=== PATIENT | female | born 1960 | race Caucasian/White ===

== ENCOUNTER 2020-09-03 12:53 | Outpatient (REF) | payer BC, SELFPAY | END 2020-09-03 12:54 | disposition home or self-care (01) | LOC: HO.LAB 12:53 | PROVIDERS: Visit Provider Internal Medicine | DX: Z12.4 Encounter for screening for malignant neoplasm of cervix (principal) | CPT/HCPCS: 88142 ==

== ENCOUNTER 2020-09-10 10:32 | Outpatient (REF) | payer BC, SELFPAY ==
[2020-09-10 14:30] LABS: Vitamin D 25-OH Total 33.2 ng/mL (>30)
[2020-09-10 14:38] LABS: Alanine Aminotransferase 15 U/L (0-31); Anion Gap 13 (12-20); Aspartate Amino Transferase 19 U/L (5-31); Blood Urea Nitrogen 15 mg/dL (9-16); Calcium 8.8 mg/dL (8.4-10.2); Carbon Dioxide 29 mmol/L (22-29); Chloride 103 mmol/L (96-108); Cholesterol 232 mg/dL; Estimated Glomerular Filt Rate > 60; Glucose Fasting 94 mg/dL (60-99); HDL Cholesterol 83 mg/dL; LDL Cholesterol Calculated 135 mg/dl; Potassium 4.4 mmol/l (3.3-5.1); Sodium 141 mmol/L (135-145); Triglycerides 71 mg/dL
== END 2020-09-10 10:33 | disposition home or self-care (01) ==
LOC: HO.HMGCLDS 10:32
PROVIDERS: PCP Internal Medicine; Visit Provider Internal Medicine
DX: E78.5 Hyperlipidemia, unspecified (principal); Z78.0 Asymptomatic menopausal state; Z00.01 Encounter for general adult medical examination with abnormal findings; I10 Essential (primary) hypertension
CPT/HCPCS: 80048; 80061; 82306; 84450; 84460

== ENCOUNTER 2020-09-26 10:23 | Outpatient (REF) | payer BC, SELFPAY | END 2020-09-26 10:24 | disposition home or self-care (01) | LOC: HO.LAB 10:23 | PROVIDERS: PCP Internal Medicine; Visit Provider Internal Medicine | DX: Z20.828 Contact with and (suspected) exposure to other viral communicable diseases (principal) | CPT/HCPCS: C9803; U0003 ==

== ENCOUNTER 2020-11-27 12:09 | Outpatient (REF) | payer BC, SELFPAY ==
--- NOTE | 2020-11-27 12:11 | MM_ITS ---
EXAMINATION: MM SCREENING DIGITAL BREAST TOMOSYNTHESIS, BILATERAL CLINICAL INFORMATION: Screening. Asymptomatic. The lifetime risk of breast cancer based on the Tyrer-Cuzick Model is 8.1%. COMPARISON: Mammography: September 06, 2019 and studies dating back to September 17, 2012 TECHNIQUE: Digital breast tomosynthesis is performed in both the craniocaudal and mediolateral oblique views along with computer-aided detection (CAD). Synthesized 2D images are generated from the tomosynthesis. FINDINGS: The breasts are heterogeneously dense, which may obscure small masses (ACR BI-RADS breast composition Category c). There are no significant masses, abnormal calcifications, or other abnormalities. MM/MM tomosynthesis screening BI IMPRESSION: There are no significant changes from prior study. ASSESSMENT: BI-RADS 1: Negative RECOMMENDATION: Routine annual mammography screening. This patient's information was entered into a reminder system with a target due date for their next mammogram.
== END 2020-11-27 12:10 | disposition home or self-care (01) ==
LOC: HO.MAMMO 12:09
PROVIDERS: PCP Internal Medicine; Visit Provider Internal Medicine
DX: Z12.31 Encounter for screening mammogram for malignant neoplasm of breast (principal)
CPT/HCPCS: 77063; 77067

== ENCOUNTER 2021-05-30 12:53 | Outpatient (REF) | payer BC, SELFPAY ==
[2021-05-30 14:40] LABS: Free T4 (Free Thyroxine) 1.35 ng/dL (0.71-1.85); Thyroid Stimulating Hormone 0.21 uIU/mL (0.32-4.0)
== END 2021-05-30 12:54 | disposition home or self-care (01) ==
LOC: HO.HMGCLDS 12:53
PROVIDERS: PCP Internal Medicine; Visit Provider Nurse Practitioner Gerontology
DX: E06.3 Autoimmune thyroiditis (principal)
CPT/HCPCS: 36415; 84439; 84443

== ENCOUNTER → 2021-06-05 11:42 | Outpatient (BNVA) | payer BC, SELFPAY | PROVIDERS: PCP Internal Medicine; Visit Provider Nurse Practitioner Gerontology ==

== ENCOUNTER 2021-07-19 13:45 | Outpatient (REF) | payer BC, SELFPAY ==
[2021-07-19 17:30] LABS: Thyroid Stimulating Hormone 0.95 uIU/mL (0.32-4.0)
== END 2021-07-19 13:46 | disposition home or self-care (01) ==
LOC: HO.HMGCLDS 13:45
PROVIDERS: PCP Internal Medicine; Visit Provider Nurse Practitioner Gerontology
DX: E06.3 Autoimmune thyroiditis (principal)
CPT/HCPCS: 36415; 84439; 84443

== ENCOUNTER 2022-05-20 07:22 | Outpatient (REF) | payer BC, SELFPAY ==
[2022-05-20 12:04] LABS: Free T4 (Free Thyroxine) 0.95 ng/dL (0.71-1.85); Thyroid Stimulating Hormone 1.92 uIU/mL (0.32-4.0); Vitamin D 25-OH Total 34.1 ng/mL (>30)
[2022-05-20 12:06] LABS: Alanine Aminotransferase 26 U/L (0-31); Aspartate Amino Transferase 21 U/L (5-31); Cholesterol 286 mg/dL; HDL Cholesterol 95 mg/dL; LDL Cholesterol Calculated 178 mg/dl; Triglycerides 65 mg/dL
[2022-05-22 20:21] LABS: Thyroid Peroxidase Antibodies 78 IU/mL (<9)
== END 2022-05-20 07:23 | disposition home or self-care (01) ==
LOC: HO.HMGCLDS 07:22
PROVIDERS: Visit Provider Internal Medicine
DX: E78.5 Hyperlipidemia, unspecified (principal); F41.9 Anxiety disorder, unspecified; E03.9 Hypothyroidism, unspecified; E06.3 Autoimmune thyroiditis
CPT/HCPCS: 36415; 80061; 82306; 84439; 84443; 84450; 84460; 86376

== ENCOUNTER 2022-11-20 08:21 | Outpatient (REF) | payer BC, SELFPAY ==
[2022-11-20 12:10] LABS: Alanine Aminotransferase 29 U/L (0-31); Aspartate Amino Transferase 22 U/L (5-31); Cholesterol 284 mg/dL; Glucose Fasting 99 mg/dL (60-99); HDL Cholesterol 105 mg/dL; LDL Cholesterol Calculated 162 mg/dl; Triglycerides 87 mg/dL
[2022-11-20 12:29] LABS: Free T4 (Free Thyroxine) 0.93 ng/dL (0.71-1.85); Thyroid Stimulating Hormone 2.27 uIU/mL (0.32-4.0); Vitamin D 25-OH Total 31.7 ng/mL (>30)
[2022-11-22 01:23] LABS: Thyroid Peroxidase Antibodies 68 IU/mL (<9)
== END 2022-11-20 08:22 | disposition home or self-care (01) ==
LOC: HO.HMGCLDS 08:21
PROVIDERS: PCP Internal Medicine; Visit Provider Internal Medicine
DX: E03.9 Hypothyroidism, unspecified (principal); E06.3 Autoimmune thyroiditis; E78.5 Hyperlipidemia, unspecified; F41.9 Anxiety disorder, unspecified
CPT/HCPCS: 36415; 80061; 82306; 82947; 84439; 84443; 84450; 84460; 86376

== ENCOUNTER 2022-11-27 10:57 | Outpatient (AMB) | payer BC, SELFPAY ==
--- NOTE | 2022-11-27 10:58 | A.OFFPC_ITS ---
Vital Signs 11/27/22 11:00 Height 5 ft 6 in Weight 145 lb BMI 23.3 BP 112/70 Blood Pressure Location Lt brachial Pulse 68 Pulse Source Pulse Oximeter Pulse Oximetry (%) 99 Oxygen Delivery Method Room Air Intake Visit Reasons: PE Allergies N.K.D.A. Allergy (Unknown, Uncoded 01/15/24 04:27) Unknown Medication List - Last Reconciled 11/27/22 by Susannah Quan MD ascorbic acid (vitamin C) mg PO cholecalciferol (vitamin D3) 25 mcg PO DAILY levothyroxine 100 mcg PO DAILY lorazepam 0.5 mg PO DAILY PRN omega-3 fatty acids (Fish Oil Concentrate) 1,000 mg PO DAILY valacyclovir 500 mg PO DAILY Tobacco use date assessed: 11/27/22 HPI PE HPI Details 62-year-old lady here today for physical exam. She has autoimmune thyroiditis, history of genital herpes and anxiety disorder as well as dyslipidemia. Compliant with taking all her medications, recent fasting labs done showed elevated LDL cholesterol, but normal fasting glucose electrolytes, thyroid levels and vitamin-D level. 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 Daughter Substance use disorder Mental health disorder Daughter No problems noted. Daughter No problems noted. Social History Housing: House Alcohol intake: current Patient Tobacco Use Status: Former Tobacco user Cigarette Packs Per Day: 1 Years Smoked: 13 yrs ago e-Cigarette/Vaping Use: Never Used service: No Current occupational status: retired Cognitive needs: No Hearing needs: No Vision needs: Yes Questionnaire PHQ-9 Over the last 2 weeks, how often have you been bothered by any of the following problems? 1. Little interest or pleasure in doing things: not at all 2. Feeling down, depressed, or hopeless: not at all 3. Trouble falling or staying asleep, or sleeping too much: not at all 4. Feeling tired or having little energy: not at all 5. Poor appetite or overeating: not at all 6. Feeling bad about yourself - or that you are a failure or have let yourself or your family down: not at all 7. Trouble concentrating on things, such as reading the newspaper or watching television: not at all 8. Moving or speaking so slowly that other people could have noticed. Or the opposite - being so fidgety or restless that you have been moving around a lot more than usual: not at all 9. Thoughts that you would be better off or of hurting yourself in some way: not at all Total score: 0 Depression Screening Interpretation: Negative 32443 - PHQ-9 Billing: Yes Source: Developed by Drs. Erick Rodriguez, Violetta Boateng, Chapo Samaniego and colleagues, with an educational syed from [employer]. Thrive Questionnaire Date Thrive assessed: 11/27/22 I am a: Patient What is your living situation today?: I have a steady place to live Within the past 12 months, did the food you bought not last and you didn't have the money to get more?: Never true Within the past 12 months, did you worry whether your food would run out before you got money to buy more?: Never true Do you have trouble paying for medicines?: No Do you have trouble getting transportation to medical appointments?: No Do you have trouble paying your heating and electricity bill?: No Do you have trouble taking care of your child, family member or friend?: No Do you have trouble with day-to-day activities such as bathing, preparing meals, shopping, managing finances, etc.?: No Are you currently unemployed and looking for a job?: No Are you interested in more education?: No AUDIT C Alcohol Use Questionnaire (AUDIT-C) 1. How often do you have a drink containing alcohol?: 4 or more times a week 2. How many drinks containing alcohol do you have on a typical day when you are drinking?: 1 or 2 3. How often do you have six or more drinks on one occasion?: Never Total Score: 4 PATRICK-7 AMB Questionnaire PATRICK-7 Date PATRICK - 7 assessed: 11/27/22 Feeling nervous, anxious, or on edge: 0 = Not at all Not being able to stop or control worryin = Not at all Worrying too much about different things: 0 = Not at all Trouble relaxin = Not at all Being so restless that it is hard to sit still: 0 = Not at all Becoming easily annoyed or irritable: 0 = Not at all Feeling afraid as if something awful might happen: 0 = Not at all Total PATRICK-7 score (0-4 normal; 5-9 mild; 10-14 moderate; 15-21 severe): 0 Source: Developed by Drs. Erick Rodriguez, Violetta Boateng, Chapo Samaniego and colleagues, with an educational syed from [employer]. PATRICK-7 Assessment Billing PATRICK-7 Assessment Tool: PATRICK-7 Assessment 67911 Review of Systems Const Denies body aches, Denies fatigue and Denies headache(s) Eyes Reports requires corrective lenses ENT Reports Normal hearing present, Denies dysphagia, Denies headache(s), Denies hoarseness and Denies nasal congestion Card Denies chest pain, Denies rapid heart rate, Denies irregular heart rhythm, Denies palpitations and Denies dyspnea Resp Denies cough and Denies dyspnea GI Denies change in bowel habits, Denies dysphagia, Denies heartburn and Denies diarrhea Reports no additional complaints Musc Reports no additional complaints Skin/Breast Denies breast pain, Denies breast mass, Denies dry skin and Denies rash Neuro Reports Normal hearing present, Denies headache(s), Denies Sensory deficit (Neuro) and Denies tremor(s) Psych Reports as per HPI Endo Denies cold intolerance, Denies fatigue and Denies palpitations Moe/Lymph Reports no additional complaints Aller/Immun Reports no additional complaints Physical exam (Primary Care) Vital Signs: Last Vital Signs Pulse 68 11/27/22 11:00 BP 112/70 11/27/22 11:00 Pulse Ox 99 11/27/22 11:00 Oxygen Delivery Method Room Air 11/27/22 11:00 BMI result Body Mass Index 23.3 Tobacco/Smoking Status: Tobacco use Status Tobacco use date assessed 11/27/22 11/27/22 11:05 Patient Tobacco Use Status Former Tobacco user 11/27/22 11:05 e-Cigarette/Vaping Use Never Used 11/27/22 11:05 PHQ-9: PHQ-9 Score PHQ-9: Total score 0 01/15/23 02:27 Depression Screening Interpretation: Negative Thrive Assessment: Date of Thrive Assessment Date Thrive assessed 11/25/21 11/27/22 11:05 Const General: no acute distress and alert Orientation/consciousness: patient oriented x3 HENMT Face and sinus: Yes face symmetric Mouth: Normal oral and palatal mucosa present, oropharynx normal and moist mucous membranes Eyes General: appearance normal, both eyes and all related structures Neck Neck: Yes full ROM and Yes no lymphadenopathy Thyroid: nontender Chest Chest palpation & inspection: normal inspection of the chest Breast/axilla palpation: normal palpation of the breasts Resp Effort & Inspection: normal respiratory effort and able to speak in complete sentences Auscultation: clear to auscultation bilaterally Cardio Jugular venous distension: no JVD Rate: regular rate Rhythm: regular rhythm Heart sounds: S1 normal heart sound present and S2 normal heart sound present GI Inspection: Yes normal to inspection Palpation (GI): Soft to palpation, nontender, no guarding and no masses Auscultation: normal bowel sounds General: No CVA tenderness and Yes deferred (Declined Pap and pelvic exam today) Back/Spine/Pelvis Back: No CVA tenderness and No back tenderness Skin General skin exam: no rashes or lesions noted Neuro General: patient oriented x3, gait normal, moves all extremities, no focal motor deficits and CN's II-XI intact bilaterally Cranial nerves: Yes Normal hearing present Cognition (Neuro): normal cognition Gait exam (Neuro): Normal gait present Motor exam (neuro): 5/5 motor strength present throughout Sensory Exam: No Sensory deficit (Neuro) Extrem General: Yes normal to inspection, Yes full ROM, Yes no pedal edema and Yes normal gait Psych Appearance: grossly normal and well kempt Mental Status: mental status grossly normal Speech and movement: Normal speech and movement present Affect: normal affect Attitude: cooperative Thought process: Normal thought process present Thought content: Normal thought content present Results Reviewed Results Reviewed: ENTERED: 11/20/22 SYLVESTER RUSSELL: ORDERED: Glu Fasting, AST, ALT, Lipid Panel, Vitamin D 25-OH, Free T4, TSH Test Result Flag Reference Site FBS 99 60-99 mg/dL AST (GOT) 22 5-31 U/L ALT (GPT) 29 0-31 U/L Triglyceride 87 mg/dL Desirable Triglyceride: less than 150 mg/dL Borderline High Triglyceride 150-199 mg/dL High Triglyceride: 200-499 mg/dL Very High Triglyceride: greater than or equal to 5OO mg/dL Chol 284 mg/dL Desirable Cholesterol: less than 200 mg/dL Borderline High Cholesterol: 200-239 mg/dL High Cholesterol: greater than 239 mg/dL LDL Calculated 162 mg/dl Desirable LDL: less than 100 mg/dL Near Optimal/Above Optimal LDL: 110-129 mg/dL Borderline High LDL: 130-159 mg/dL High LDL: 160-189 mg/dL Very High LDL: greater than or equal to 190 mg/dL HDL 105 mg/dL Desirable HDL: greater than 40 mg/dL Note: This HDL assay may give artificially low results in patients with liver disease. Vit D 25-OH Tot 31.7 >30 ng/mL Health Based Reference Values* < 20 ng/mL Deficient 20-30 ng/mL Insufficient > 30 ng/mL Sufficient *Julianne STEWART. N Engl J Med. 2007;[id number] Care must be taken in interpreting Vitamin D results from different laboratories and methodologies. Published data demonstrated that results from patients undergoing hemodialysis may show a negative bias when tested with various automated 25-OH vitamin D assays when compared to LC-MS/MS. When testing samples from patients whose predominant form of Vitamin D is Vitamin D2, such as patients receiving Vitamin D2 supplementation, results that are subtherapeutic should be confirmed with another method such as LC-MS/MS. Free T4 0.93 0.71-1.85 ng/dL TSH 3rd Gen. 2.27 0.32-4.0 uIU/mL TSH 3rd Generation ([facility]) A Assessment and Plan Assessment & Plan (1) Annual visit for general adult medical examination with abnormal findings: Code(s): Z00.01 - Encounter for general adult medical examination with abnormal findings Plan: Fasting labs reviewed today patient with thyroid levels within normal limits, lipids showing elevated LDL cholesterol. Reinforced importance of following a L owe's cholesterol diet and take medications as directed. Continue with taking [place] 3 fatty acid supplements . Recommended dental visit every 6 months and regular eye exams, at least every 2 years. Take adequate calcium in diet and vitamin-D 3 at 2000 IU per cap once a day, in addition to weight-bearing exercises to help maintain good muscle tone and weight control. Instructed to do self-breast exam, and recommended to get yearly mammogram, ordered again today.. Cologuard testing already ordered with results still pending. Patient does not want to get any vaccines. (2) Dyslipidemia: Code(s): E78.5 - Hyperlipidemia, unspecified Plan: Reviewed recent fasting lipid profile with patient with elevated LDL cholesterol . Reinforced importance of following a low-cholesterol diet, and getting regular exercise, at least 30 minutes 3 to 4 times a week. Advised patient to make healthy food choices, eat more fruits, vegetables, whole grains, wild caught fish and low-fat dairy. Limit amount of meat and fried or fatty food products, as well as processed foods and fast foods. Follow-up scheduled with repeat fasting lipid panel in 6 months. (3) Autoimmune thyroiditis: Code(s): E06.3 - Autoimmune thyroiditis Plan: Thyroid levels are within normal limits, continued on current dose of levothyroxine 100 mcg once a day recheck levels again in May 2023 (4) Refused influenza vaccine: Code(s): Z28.21 - Immunization not carried out because of patient refusal (5) COVID-19 vaccine series declined: Code(s): Z28.21 - Immunization not carried out because of patient refusal (6) History of herpes genitalis: Code(s): Z86.19 - Personal history of other infectious and parasitic diseases Plan: Currently taking valacyclovir 500 mg once a day (7) Anxiety disorder: Code(s): F41.9 - Anxiety disorder, unspecified Qualifiers: Anxiety disorder type: generalized anxiety disorder Qualified Code(s): F41.1 - Generalized anxiety disorder Plan: Takes lorazepam as needed for acute anxiety attacks Orders: Orders Lipid Panel 06/01/23 E06.3 - Autoimmune thyroiditis, E78.5 - Hyperlipidemia, unspecified Thyroid Stimulating Hormone 06/01/23 E06.3 - Autoimmune thyroiditis, E78.5 - Hyperlipidemia, unspecified Free T4 (Free Thyroxine) 06/01/23 E03.9 - Hypothyroidism, unspecified, E06.3 - Autoimmune thyroiditis, E78.5 - Hyperlipidemia, unspecified MM screening mammo BI 11/27/22 Z12.31 - Encounter for screening mammogram for malignant neoplasm of breast Thyroid Peroxidase Antibodies 06/01/23 E06.3 - Autoimmune thyroiditis, E78.5 - Hyperlipidemia, unspecified Vitamin D 25-OH Total 06/01/23 E06.3 - Autoimmune thyroiditis, E78.5 - Hyperlipidemia, unspecified Alanine Aminotransferase 06/01/23 E06.3 - Autoimmune thyroiditis, E78.5 - Hyperlipidemia, unspecified Aspartate Amino Transferase 06/01/23 E06.3 - Autoimmune thyroiditis, E78.5 - Hyperlipidemia, unspecified Coding Level of Care Code Est Pt Prev Care 40-64y(21074) Diagnoses Annual visit for general adult medical examination with abnormal findings Z00.01 Dyslipidemia E78.5 Autoimmune thyroiditis E06.3 Refused influenza vaccine Z28.21 COVID-19 vaccine series declined Z28.21 History of herpes genitalis Z86.19 Generalized anxiety disorder F41.1 Anxiety disorder type: generalized anxiety disorder Additional Codes PATRICK-7 Assessment Billing - PATRICK-7 Assessment Tool: PATRICK-7 Assessment 98353 ([id number])
[2022-11-27 11:00] VITALS: BP 112/70; PULSE 68; O2SAT 99; BMI 23.3
== END 2022-11-27 12:00 | disposition home or self-care (01) ==
LOC: HO.HMGC 10:57
PROVIDERS: PCP Internal Medicine; Visit Provider Internal Medicine
DX: Z00.00 Encounter for general adult medical examination without abnormal findings (principal); E78.5 Hyperlipidemia, unspecified; E06.3 Autoimmune thyroiditis; Z28.21 Immunization not carried out because of patient refusal; Z86.19 Personal history of other infectious and parasitic diseases; F41.1 Generalized anxiety disorder
CPT/HCPCS: 99499

== ENCOUNTER 2022-12-31 14:54 | Outpatient (REF) | payer BC, SELFPAY ==
--- NOTE | ~2022-12-31 | MM_ITS ---
EXAMINATION: MM SCREENING DIGITAL BREAST TOMOSYNTHESIS, BILATERAL CLINICAL INFORMATION: Screening. Asymptomatic. The lifetime risk of breast cancer based on the Tyrer-Cuzick Model is 8%. COMPARISON: Mammography: 04/27/2021, 09/06/2019, 08/25/2018 TECHNIQUE: Digital breast tomosynthesis is performed in both the craniocaudal and mediolateral oblique views along with computer-aided detection (CAD). Synthesized 2D images are generated from the tomosynthesis. FINDINGS: There are scattered areas of fibroglandular density (ACR BI-RADS breast composition Category b). There are no significant masses, abnormal calcifications, or other abnormalities. Parenchymal pattern is similar to prior studies. There is no developing density or architectural abnormality. The axilla and skin contours are unremarkable. No significant changes. MM/MM tomosynthesis screening BI IMPRESSION: No mammographic evidence of malignancy. ASSESSMENT: BI-RADS 1: Negative RECOMMENDATION: Routine annual mammography screening. This patient's information was entered into a reminder system with a target due date for their next mammogram.
== END 2022-12-31 14:55 | disposition home or self-care (01) ==
LOC: HO.MAMMO 14:54
PROVIDERS: PCP Internal Medicine; Visit Provider Internal Medicine
DX: Z12.31 Encounter for screening mammogram for malignant neoplasm of breast (principal)
CPT/HCPCS: 77063; 77067

== ENCOUNTER 2023-06-09 11:24 | Outpatient (AMB) | payer BC, SELFPAY ==
--- NOTE | 2023-06-09 11:35 | A.OFFPC_ITS ---
Vital Signs 06/09/23 11:37 Height 5 ft 6 in Weight 141 lb BMI 22.8 BP 110/60 Blood Pressure Location Lt brachial Position Sitting Pulse 62 Pulse Source Pulse Oximeter Pulse Oximetry (%) 98 Oxygen Delivery Method Room Air Intake Visit Reasons: 6 month follow up Intake Note: Pt is here today for her 6 months f/u Allergies N.K.D.A. Allergy (Unknown, Uncoded 06/09/23 11:57) Unknown Medication List - Last Reconciled 06/09/23 by Susannah Quan MD ascorbic acid (vitamin C) mg PO cholecalciferol (vitamin D3) 25 mcg PO DAILY levothyroxine 100 mcg PO DAILY lorazepam 0.5 mg PO DAILY PRN omega-3 fatty acids (Fish Oil Concentrate) 1,000 mg PO DAILY valacyclovir 500 mg PO DAILY Tobacco use date assessed: 06/09/23 Dental Screening Dental Screen Date: 06/09/23 Did you have a dental visit in the last 12 months?: No Was dental information given to patient?: No HPI 6 month follow up HPI Details 62-year-old lady with multi with thyroiditis with subsequent hypothyroidism, anxiety disorder dyslipidemia and history of genital herpes, here today for follow-up. She has been under lot of stress lately taking care of her father who is now in a [facility] in the dementia unit and her mother who recently broke her hip after a fall and is currently living with her. 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 She has been taking lorazepam which has been helping for her anxiety can does not want to take any other medications, and declines referral for counseling. [facility] Medical History Anxiety disorder Autoimmune thyroiditis COVID-19 vaccine series declined Dyslipidemia Veronica's disease History of COVID-19 Refused influenza vaccine Surgical History History of colonoscopy History of lumpectomy Family History Father Mental health disorder Substance use disorder Mother HTN (hypertension) Asthma Sister Breast cancer Sister No problems noted. Daughter Substance use disorder Mental health disorder Daughter No problems noted. Daughter No problems noted. Social History Housing: House Alcohol intake: current Patient Tobacco Use Status: Former Tobacco user Cigarette Packs Per Day: 1 Years Smoked: 13 yrs ago e-Cigarette/Vaping Use: Never Used service: No Current occupational status: retired Cognitive needs: No Hearing needs: No Vision needs: Yes Questionnaire PHQ-9 Over the last 2 weeks, how often have you been bothered by any of the following problems? Depression Screening Interpretation: Negative Source: Developed by Drs. Erick Rodriguez, Violetta Boateng, Chapo Samaniego and colleagues, with an educational syed from [employer]. Thrive Questionnaire Date Thrive assessed: 11/25/21 PATRICK-7 AMB Questionnaire PATRICK-7 Date PATRICK - 7 assessed: 06/09/23 Feeling nervous, anxious, or on edge: 2 = More than half the days Not being able to stop or control worryin = Nearly every day Worrying too much about different things: 3 = Nearly every day Trouble relaxin = More than half the days Being so restless that it is hard to sit still: 2 = More than half the days Becoming easily annoyed or irritable: 2 = More than half the days Feeling afraid as if something awful might happen: 1 = Several days Total PATRICK-7 score (0-4 normal; 5-9 mild; 10-14 moderate; 15-21 severe): 15 Source: Developed by Drs. Erick Rodriguez, Violetta Boateng, Chapo Samaniego and colleagues, with an educational syed from [employer]. PATRICK-7 Assessment Billing PATRICK-7 Assessment Tool: PATRICK-7 Assessment 51235 (Declines referral for therapy, states that she takes her lorazepam at bedtime, which has helped, does not want to take additional meds) Review of Systems Const Denies body aches, Denies fatigue and Denies headache(s) Eyes Reports requires corrective lenses ENT Reports Normal hearing present, Denies dysphagia, Denies headache(s), Denies hoarseness and Denies nasal congestion Card Denies chest pain, Denies rapid heart rate, Denies irregular heart rhythm, Denies palpitations and Denies dyspnea Resp Denies cough and Denies dyspnea GI Denies change in bowel habits, Denies dysphagia, Denies heartburn and Denies diarrhea Musc Reports no additional complaints Skin/Breast Denies breast pain, Denies breast mass, Denies dry skin and Denies rash Neuro Reports Normal hearing present, Denies headache(s), Denies Sensory deficit (Neuro) and Denies tremor(s) Psych Reports as per HPI Endo Denies cold intolerance, Denies fatigue and Denies palpitations Physical exam (Primary Care) Vital Signs: Last Vital Signs Pulse 62 06/09/23 11:37 BP 110/60 06/09/23 11:37 Pulse Ox 98 06/09/23 11:37 Oxygen Delivery Method Room Air 06/09/23 11:37 BMI result Body Mass Index 22.8 Tobacco/Smoking Status: Tobacco use Status Tobacco use date assessed 06/09/23 06/09/23 11:36 Patient Tobacco Use Status Former Tobacco user 06/09/23 11:36 e-Cigarette/Vaping Use Never Used 06/09/23 11:36 Depression Screening Interpretation: Negative Thrive Assessment: Date of Thrive Assessment Date Thrive assessed 11/25/21 06/09/23 11:36 Const General: healthy appearing, no acute distress and alert Orientation/consciousness: patient oriented x3 Limitations: no limitations HENMT Face and sinus: Yes face symmetric Mouth: Normal oral and palatal mucosa present, oropharynx normal and moist mucous membranes Eyes General: appearance normal, both eyes and all related structures Neck Other: Palpable thyroid gland, nontender to palpation Neck: Yes full ROM and Yes no lymphadenopathy Thyroid: nontender Resp Effort & Inspection: normal respiratory effort and able to speak in complete sentences Auscultation: clear to auscultation bilaterally Cardio Jugular venous distension: no JVD Rate: regular rate Rhythm: regular rhythm Heart sounds: S1 normal heart sound present and S2 normal heart sound present GI Inspection: Yes normal to inspection Palpation (GI): Soft to palpation, nontender, no guarding and no masses Auscultation: normal bowel sounds Skin General skin exam: no rashes or lesions noted Neuro General: patient oriented x3, gait normal, moves all extremities, no focal motor deficits and CN's II-XI intact bilaterally Cranial nerves: Yes Normal hearing present Cognition (Neuro): normal cognition Gait exam (Neuro): Normal gait present Motor exam (neuro): 5/5 motor strength present throughout Sensory Exam: No Sensory deficit (Neuro) Extrem General: Yes normal to inspection, Yes full ROM, Yes no pedal edema and Yes normal gait Psych Appearance: grossly normal and well kempt Mental Status: mental status grossly normal Speech and movement: Normal speech and movement present Affect: normal affect Attitude: cooperative Thought process: Normal thought process present Thought content: Normal thought content present Assessment and Plan Assessment & Plan (1) Autoimmune thyroiditis: Code(s): E06.3 - Autoimmune thyroiditis Plan: Ordered repeat another TSH and free T4, continue on levothyroxine 100 mcg daily (2) Anxiety disorder: Code(s): F41.9 - Anxiety disorder, unspecified Plan: Takes lorazepam at bedtime, which has been helping, does not want to take any further medications, decline referral for counseling (3) Dyslipidemia: Code(s): E78.5 - Hyperlipidemia, unspecified Plan: Stressed importance of following a low-cholesterol diet and regular exercise, at least 30 minutes 3 to 4 times a week. Advised patient to make healthy food choices, eat more fruits, vegetables, whole grains, wild caught fish and low- fat dairy. Limit amount of meat and fried or fatty food products, as well as processed foods and fast foods. Plan Get fasting labs done, already ordered, Medications: Refilled lorazepam 0.5 mg PO DAILY PRN 30 tabs 0RF anxiety Review Patient declined Pneumococcal Vaccine: 06/09/23 Flu Vaccine not done: patient reason Coding Level of Care Code Est Pt Level 3 (94223) Diagnoses Autoimmune thyroiditis E06.3 Anxiety disorder F41.9 Dyslipidemia E78.5 Additional Codes PATRICK-7 Assessment Billing - PATRICK-7 Assessment Tool: PATRICK-7 Assessment 31880 ([id number])
[2023-06-09 11:37] VITALS: BP 110/60; PULSE 62; O2SAT 98; BMI 22.8
== END 2023-06-09 12:26 | disposition home or self-care (01) ==
PROVIDERS: Visit Provider Internal Medicine
DX: E06.3 Autoimmune thyroiditis (principal); F41.9 Anxiety disorder, unspecified; E78.5 Hyperlipidemia, unspecified
CPT/HCPCS: 99213

== ENCOUNTER 2023-11-26 07:21 | Outpatient (REF) | payer BC, SELFPAY ==
[2023-11-26 12:52] LABS: Alanine Aminotransferase 21 U/L (0-31); Aspartate Amino Transferase 19 U/L (5-31); Cholesterol 252 mg/dL (<200); Free T4 (Free Thyroxine) 1.07 ng/dL (0.71-1.85); HDL Cholesterol 77 mg/dL (>40); LDL Cholesterol Calculated 163 mg/dL (<100); Thyroid Stimulating Hormone 1.18 uIU/mL (0.32-4.0); Triglycerides 60 mg/dL (<150); Vitamin D 25-OH Total 61.4 ng/mL (>30)
[2023-11-27 12:13] LABS: Thyroid Peroxidase Antibodies 35 IU/mL (<9)
== END 2023-11-26 07:22 | disposition home or self-care (01) ==
LOC: HO.HMGCLDS 07:21
PROVIDERS: PCP Internal Medicine; Visit Provider Internal Medicine
DX: E06.3 Autoimmune thyroiditis (principal); E03.9 Hypothyroidism, unspecified; E78.5 Hyperlipidemia, unspecified
CPT/HCPCS: 36415; 80061; 82306; 84439; 84443; 84450; 84460; 86376

== ENCOUNTER 2024-01-06 11:41 | Outpatient (AMB) | payer BC, SELFPAY ==
--- NOTE | 2024-01-06 12:12 | MHC.PC.OV ---
Vital Signs 01/06/24 13:05 Height 5 ft 6 in Weight 140 lb BMI 22.6 BP 120/66 Blood Pressure Location Lt brachial Position Sitting Pulse 76 Pulse Source Pulse Oximeter Pulse Oximetry (%) 96 Oxygen Delivery Method Room Air Intake Visit Reasons: PE Intake Note: Pt is here today for her PE and papsmear: last mammogram 12/31/22, papsmear 09/04/20 and cologuard 11/28/22 Allergies N.K.D.A. Allergy (Unknown, Uncoded 01/15/24 04:27) Unknown Medication List - Last Reconciled 01/15/24 by Susannah Quan MD ascorbic acid (vitamin C) mg PO cholecalciferol (vitamin D3) 25 mcg PO DAILY levothyroxine 100 mcg PO DAILY lorazepam 0.5 mg PO DAILY PRN omega-3 fatty acids (Fish Oil Concentrate) 1,000 mg PO DAILY valacyclovir 500 mg PO DAILY Tobacco use date assessed: 01/06/24 Dental Screening Dental Screen Date: 01/06/24 Did you have a dental visit in the last 12 months?: No Was dental information given to patient?: Patient has dentist HPI PE HPI Details 63-year-old lady here today for physical exam. 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 Has hyperlipidemia currently taking [place] Boro 3 fatty acid supplements and has been following a low-cholesterol diet and stays active but no regular exercise. Has history of enter herpes on valacyclovir has tried not taking medication in the past but would get frequent outbreaks. She has generalized anxiety disorder, takes lorazepam as needed, but lately has been needing to take it more frequently. Does not want to start any maintenance medication for anxiety. She does not want to get any vaccinations. He is due today for her cervical cancer screening and pelvic exam as well as for her yearly mammogram, last mammogram was done 2022. She had a negative Cologuard test done in 2022 [facility] Medical History (Updated 01/15/24 @ 04:45 by Susannah Quan MD) Encounter for colorectal cancer screening using Cologuard test History of herpes genitalis Vaccine refused by patient COVID-19 vaccine series declined Refused influenza vaccine History of COVID-19 Veronica's disease Autoimmune thyroiditis Anxiety disorder Dyslipidemia Surgical History History of colonoscopy History of lumpectomy Family History Father Mental health disorder Substance use disorder Mother HTN (hypertension) Asthma Sister Breast cancer Sister No problems noted. Daughter Substance use disorder Mental health disorder Daughter No problems noted. Daughter No problems noted. Social History Housing: House Alcohol intake: current Patient Tobacco Use Status: Former Tobacco user Cigarette Packs Per Day: 1 Years Smoked: 13 yrs ago e-Cigarette/Vaping Use: Never Used service: No Current occupational status: retired Cognitive needs: No Hearing needs: No Vision needs: Yes Questionnaire PHQ-9 Over the last 2 weeks, how often have you been bothered by any of the following problems? 1. Little interest or pleasure in doing things: not at all 2. Feeling down, depressed, or hopeless: not at all 3. Trouble falling or staying asleep, or sleeping too much: not at all 4. Feeling tired or having little energy: not at all 5. Poor appetite or overeating: not at all 6. Feeling bad about yourself - or that you are a failure or have let yourself or your family down: not at all 7. Trouble concentrating on things, such as reading the newspaper or watching television: not at all 8. Moving or speaking so slowly that other people could have noticed. Or the opposite - being so fidgety or restless that you have been moving around a lot more than usual: not at all 9. Thoughts that you would be better off or of hurting yourself in some way: not at all Total score: 0 Depression Screening Interpretation: Negative Depression Screening Done: Yes [id number] - PHQ-9 Billing: Yes Source: Developed by Drs. Erick Rodriguez, Violetta Boateng, Chapo Samaniego and colleagues, with an educational syed from [employer]. Thrive Questionnaire Date Thrive assessed: 01/06/24 I am a: Patient What is your living situation today?: I have a steady place to live Within the past 12 months, did the food you bought not last and you didn't have the money to get more?: Never true Within the past 12 months, did you worry whether your food would run out before you got money to buy more?: Never true Do you have trouble paying for medicines?: No Do you have trouble getting transportation to medical appointments?: No Do you have trouble paying your heating and electricity bill?: No Do you have trouble taking care of your child, family member or friend?: No Do you have trouble with day-to-day activities such as bathing, preparing meals, shopping, managing finances, etc.?: No Are you currently unemployed and looking for a job?: No Are you interested in more education?: No THRIVE Score: 0 AUDIT C Alcohol Use Questionnaire (AUDIT-C) 1. How often do you have a drink containing alcohol?: 2-3 times a week 2. How many drinks containing alcohol do you have on a typical day when you are drinking?: 3 or 4 Total Score: 4 PATRICK-7 AMB Questionnaire PATRICK-7 Date PATRICK - 7 assessed: 01/06/24 Feeling nervous, anxious, or on edge: 1 = Several days Not being able to stop or control worryin = Several days Worrying too much about different things: 1 = Several days Trouble relaxin = Not at all Being so restless that it is hard to sit still: 0 = Not at all Becoming easily annoyed or irritable: 1 = Several days Feeling afraid as if something awful might happen: 0 = Not at all Total PATRICK-7 score (0-4 normal; 5-9 mild; 10-14 moderate; 15-21 severe): 4 Source: Developed by Drs. Erick Rodriguez, Violetta Boateng, Chapo Samaniego and colleagues, with an educational syed from [employer]. PATRICK-7 Assessment Billing PATRICK-7 Assessment Tool: PATRICK-7 Assessment 42791 Review of Systems Const Denies body aches, Denies fatigue and Denies headache(s) Eyes Reports requires corrective lenses ENT Reports Normal hearing present, Denies dysphagia, Denies headache(s), Denies hoarseness and Denies nasal congestion Card Denies chest pain, Denies rapid heart rate, Denies irregular heart rhythm, Denies palpitations and Denies dyspnea Resp Denies cough and Denies dyspnea GI Denies change in bowel habits, Denies dysphagia, Denies heartburn and Denies diarrhea Reports no additional complaints Musc Reports no additional complaints Skin/Breast Denies breast pain, Denies breast mass, Denies dry skin and Denies rash Neuro Reports Normal hearing present, Denies headache(s), Denies Sensory deficit (Neuro) and Denies tremor(s) Psych Reports as per HPI Endo Denies cold intolerance, Denies fatigue and Denies palpitations Moe/Lymph Reports no additional complaints Aller/Immun Reports no additional complaints Physical exam (Primary Care) Vital Signs: Last Vital Signs Pulse 76 01/06/24 13:05 BP 120/66 01/06/24 13:05 Pulse Ox 96 01/06/24 13:05 Oxygen Delivery Method Room Air 01/06/24 13:05 BMI result Body Mass Index 22.6 Tobacco/Smoking Status: Tobacco use Status Tobacco use date assessed 01/06/24 01/06/24 13:07 Patient Tobacco Use Status Former Tobacco user 01/06/24 12:12 e-Cigarette/Vaping Use Never Used 01/06/24 12:12 PHQ-9: PHQ-9 Score PHQ-9: Total score 2 01/06/24 13:31 Depression Screening Interpretation: Negative Thrive Assessment: Date of Thrive Assessment Date Thrive assessed 01/06/24 01/06/24 13:13 Const General: no acute distress and alert Orientation/consciousness: patient oriented x3 HENMT Face and sinus: Yes face symmetric Mouth: Normal oral and palatal mucosa present, oropharynx normal and moist mucous membranes Eyes General: appearance normal, both eyes and all related structures Neck Other: Palpable thyroid gland, nontender to palpation Neck: Yes full ROM and Yes no lymphadenopathy Thyroid: nontender Chest Chest palpation & inspection: normal inspection of the chest Breast/axilla palpation: normal palpation of the breasts Resp Effort & Inspection: normal respiratory effort and able to speak in complete sentences Auscultation: clear to auscultation bilaterally Cardio Jugular venous distension: no JVD Rate: regular rate Rhythm: regular rhythm Heart sounds: S1 normal heart sound present and S2 normal heart sound present GI Inspection: Yes normal to inspection Palpation (GI): Soft to palpation, nontender, no guarding and no masses Auscultation: normal bowel sounds External Female Exam: normal external appearance and normal appearance of the urethra Speculum Exam - Vagina: normal palpation and vagina atrophic Speculum Exam - Cervix: normal appearance of the cervix and normal palpation Bimanual exam- vagina & uterus: normal palpation, normal palpation and no cervical motion tenderness Bimanual Exam- Adnexa, other: normal adnexae, no masses and No adnexal tenderness Back/Spine/Pelvis Back: No back tenderness Skin General skin exam: no rashes or lesions noted Neuro General: patient oriented x3, gait normal, moves all extremities, no focal motor deficits and CN's II-XI intact bilaterally Cranial nerves: Yes Normal hearing present Cognition (Neuro): normal cognition Gait exam (Neuro): Normal gait present Motor exam (neuro): 5/5 motor strength present throughout Sensory Exam: No Sensory deficit (Neuro) Extrem General: Yes normal to inspection, Yes full ROM, Yes no pedal edema and Yes normal gait Psych Appearance: grossly normal and well kempt Mental Status: mental status grossly normal Speech and movement: Normal speech and movement present Affect: normal affect Attitude: cooperative Thought process: Normal thought process present Thought content: Normal thought content present Assessment and Plan Assessment & Plan (1) Annual visit for general adult medical examination with abnormal findings: Code(s): Z00.01 - Encounter for general adult medical examination with abnormal findings Plan: Will check appropriate labs. Recommended dental visit every 6 months and regular eye exams, at least every 2 years. Take adequate calcium in diet and vitamin-D 3 at 2000 IU per cap once a day, in addition to weight-bearing exercises to help maintain good muscle tone and weight control. Instructed to do self-breast exam, and recommended to get yearly mammogram, ordered, to be done together with her bone density scan. Up-to-date with her colon cancer screening, had a negative Cologuard in 2022, to be repeated again in 2025. Declines all recommended vaccination (2) Dyslipidemia: Code(s): E78.5 - Hyperlipidemia, unspecified Plan: Fasting lipid panel ordered currently on [place] Boro 3 fatty acid supplement, reinforced importanc of following a low cholesterol diet and getting regular exercise. (3) Autoimmune thyroiditis: Code(s): E06.3 - Autoimmune thyroiditis Plan: Ordered TSH and free T4, continued on current dose of levothyroxine (4) Cervical cancer screening: Code(s): Z12.4 - Encounter for screening for malignant neoplasm of cervix Plan: Pap smear and pelvic exam done (5) Postmenopause: Code(s): Z78.0 - Asymptomatic menopausal state Plan: Continue with vitamin-D 325 mcg once a day, stressed importance of doing regular weight-bearing exercise to preserve bone mass, take adequate calcium from dietary sources bone density scan ordered (6) Anxiety disorder: Code(s): F41.9 - Anxiety disorder, unspecified Qualifiers: Anxiety disorder type: generalized anxiety disorder Qualified Code(s): F41.1 - Generalized anxiety disorder Plan: Takes lorazepam 0.5 mg once a day as needed, refused to start any other medication for anxiety treatment (7) Refused influenza vaccine: Code(s): Z28.21 - Immunization not carried out because of patient refusal (8) Vaccine refused by patient: Code(s): Z28.20 - Immunization not carried out because of patient decision for unspecified reason (9) History of herpes genitalis: Code(s): Z86.19 - Personal history of other infectious and parasitic diseases Plan: Continue valacyclovir 500 mg once a day Orders: Orders Pap Smear 01/06/24 Z12.4 - Encounter for screening for malignant neoplasm of cervix MM tomosynthesis screening BI 01/06/24 Z12.31 - Encounter for screening mammogram for malignant neoplasm of breast, Z78.0 - Asymptomatic menopausal state XR DEXA axial skeleton 01/06/24 Z12.31 - Encounter for screening mammogram for malignant neoplasm of breast, Z78.0 - Asymptomatic menopausal state Coding Level of Care Code Est Pt Prev Care 40-64y(68502) Diagnoses Annual visit for general adult medical examination with abnormal findings Z00.01 Dyslipidemia E78.5 Autoimmune thyroiditis E06.3 Cervical cancer screening Z12.4 Postmenopause Z78.0 Generalized anxiety disorder F41.1 Anxiety disorder type: generalized anxiety disorder Refused influenza vaccine Z28.21 Vaccine refused by patient Z28.20 History of herpes genitalis Z86.19 Additional Codes PATRICK-7 Assessment Billing - PATRICK-7 Assessment Tool: PATRICK-7 Assessment [id number] ([id number])
[2024-01-06 13:05] VITALS: BP 120/66; PULSE 76; O2SAT 96; BMI 22.6
== END 2024-01-06 13:31 | disposition home or self-care (01) ==
PROVIDERS: PCP Internal Medicine; Visit Provider Internal Medicine
DX: Z00.00 Encounter for general adult medical examination without abnormal findings (principal); E78.5 Hyperlipidemia, unspecified; E06.3 Autoimmune thyroiditis; Z78.0 Asymptomatic menopausal state; F41.1 Generalized anxiety disorder; Z28.21 Immunization not carried out because of patient refusal; Z28.20 Immunization not carried out because of patient decision for unspecified reason; Z86.19 Personal history of other infectious and parasitic diseases
CPT/HCPCS: 99396

== ENCOUNTER 2024-01-06 13:36 | Outpatient (REF) | payer BC, SELFPAY ==
[2024-01-14 03:24] LABS: HPV mRNA E6/E7 rflx Not Detected (Not Detected)
== END 2024-01-06 13:37 | disposition home or self-care (01) ==
LOC: HO.LAB 13:36
PROVIDERS: Visit Provider Internal Medicine
DX: Z12.4 Encounter for screening for malignant neoplasm of cervix (principal); Z11.51 Encounter for screening for human papillomavirus (HPV)
CPT/HCPCS: 87624; 88142

== ENCOUNTER 2024-02-16 10:37 | Outpatient (REF) | payer BC, SELFPAY ==
--- NOTE | ~2024-02-16 | MM_ITS ---
EXAMINATION: BONE DENSITOMETRY CLINICAL INDICATION: Asymptomatic menopausal state. COMPARISON: Previous BD dated 12/03/2008 and baseline BD dated 11/20/2005. TECHNIQUE: Using a [employer] DXA System (software version: 13.1) manufactured by [employer], dual-energy x-ray absorptiometry was performed of the lumbar spine and left hip. The images are of good technical quality. Summary results are attached. FINDINGS: LEFT FEMUR, NECK: Current: BMD 0.701 g/cm2, Z-score -1.0, T-score -2.4, osteopenia. Prior: BMD 0.923 g/cm2. Baseline: BMD 0.961 g/cm2. LEFT FEMUR, TOTAL: Current: BMD 0.799 g/cm2, Z-score -0.5, T-score -1.7, osteopenia, 23.8% decrease from previous, 25.6% decrease from baseline (<5% change is not significant). Prior: BMD 1.049 g/cm2. Baseline: BMD 1.074 g/cm2. AP SPINE L1-L4: Current: BMD 1.104 g/cm2, Z-score 0.9, T-score -0.6, normal, 8.5% decrease from previous, 15.7% decrease from baseline (<5% change is not significant). Prior: BMD 1.207 g/cm2. Baseline: BMD 1.309 g/cm2. IDENTIFIED RISK FACTORS: Early menopause, secondary osteoporosis, parental hip fracture, current smoker. HISTORY OF FRACTURE: None listed. MEDICATIONS: Vitamin D. MM/XR DEXA axial skeleton IMPRESSION: 1. DIAGNOSIS: Osteopenia based on the lowest T-score value of -2.4 in the femoral neck applying World Health Organization criteria. 2. 10-YEAR FRACTURE RISK PREDICTION, FRAX: Major osteoporotic fracture (clinical spine, forearm, hip or shoulder) 22.2%. Hip fracture 4.4%. 3. Treatment Recommendations: NOF guidelines recommend consideration for treatment in postmenopausal women and men age 50 and older presenting with the following: -A hip or vertebral (clinical or morphometric) fracture. -T-score less than or equal to -2.5 at the femoral neck or spine after appropriate evaluation to exclude secondary causes. -Low bone mass at the hip or spine and a 10-year fracture probability by FRAX of greater than or equal to 3% for hip fracture or greater than or equal to 20% for major osteoporotic fracture based on the [place] adapted WHO algorithm. 4. Other Recommendations: All treatment decisions require clinical judgment and consideration of individual patient factors, including patient preferences, comorbidities, previous drug use, risk factors not captured in the FRAX model (e.g. frailty, falls, vitamin D deficiency, increased bone turnover, interval significant decline in bone density) and possible under or overestimation of fracture risk by FRAX. Additional medical evaluation for secondary cause of low bone mineral density may be appropriate. FUTURE SCAN RECOMMENDATION: People with diagnosed cases of osteoporosis or at high risk for fracture should have regular bone mineral density tests. For patients eligible for Medicare, routine testing is allowed once every 2 years. The testing frequency can be increased to one year for patients who have rapidly progressing disease, those who are receiving or discontinuing medical therapy to restore bone mass, or have additional risk factors.
== END 2024-02-16 10:38 | disposition home or self-care (01) ==
LOC: HO.MAMMO 10:37
PROVIDERS: PCP Internal Medicine; Visit Provider Internal Medicine
DX: Z12.31 Encounter for screening mammogram for malignant neoplasm of breast (principal); Z13.820 Encounter for screening for osteoporosis; Z78.0 Asymptomatic menopausal state
CPT/HCPCS: 77063; 77067; 77080

== ENCOUNTER → 2024-02-16 11:00 | Outpatient (BNV) | payer BC, SELFPAY | PROVIDERS: PCP Internal Medicine; Visit Provider Radiology Diagnostic Radiology | DX: Z12.31 Encounter for screening mammogram for malignant neoplasm of breast (principal) | CPT/HCPCS: 77063; 77067 ==

== ENCOUNTER 2025-01-17 10:59 | Outpatient (AMB) | payer MEDICARE, BC, SELFPAY ==
--- NOTE | 2025-01-17 11:19 | A.OFFPC_ITS ---
Vital Signs 01/17/25 11:45 Height 5 ft 5.5 in Weight 143 lb BMI 23.4 BP 120/70 Blood Pressure Location Rt brachial Position Sitting Respiration 16 Pulse 71 Pulse Source Pulse Oximeter Temp 98.7 F Temp Source Oral Pulse Oximetry (%) 97 Oxygen Delivery Method Room Air Intake Visit Reasons: Annual PE/secondary covers. Intake Note: Pt is here today for her PE: last mammogram 02/16/24, bone density scan 02/16/24, papsmear 01/07/24 and cologuard 11/28/22 Allergies N.K.D.A. Allergy (Unknown, Uncoded 01/17/25 11:55) Unknown Medication List - Last Reconciled 01/17/25 by Susannah Quan MD ascorbic acid (vitamin C) mg PO cholecalciferol (vitamin D3) 25 mcg PO DAILY levothyroxine 100 mcg PO DAILY lorazepam 0.5 mg PO DAILY PRN omega-3 fatty acids (Fish Oil Concentrate) 1,000 mg PO DAILY valacyclovir 500 mg PO DAILY Tobacco use date assessed: 01/17/25 Fall risk assessment: No Falls in past year Last assessed Fall Risk: 01/17/25 Dental Screening Dental Screen Date: 01/17/25 Did you have a dental visit in the last 12 months?: No Did you have a dental problem in the last 6 months where you did not have access to dental care?: No Was dental information given to patient?: Patient has dentist HPI Annual PE/secondary covers. HPI Details 64-year-old lady here today for her phys ical exam. She is up-to-date with her screening mammogram, due again next month. Last mammogram done 02/16/2024 showed benign findings. She is also up-to-date with her bone density scan done 02/16/2024 which showed presence of osteopenia in left total femur and left femoral neck, normal bone density in lumbar spine. No history of fractures. She is up-to-date with her colon cancer screening, had a Cologuard test in 2022 which came back negative. Last cervical screening was done a year ago which showed presence of atrophic vaginitis. She has hypothyroidism currently on levothyroxine 100 mcg daily, feels well on current dose. Due for a recheck on her thyroid levels. She is taking lorazepam almost on a regular basis now to help control anxiety attacks. Patient states that she has been under lot of stress these past few months with several deaths in her family . 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 Daughter Substance use disorder Mental health disorder Daughter No problems noted. Daughter No problems noted. Social History Housing: House Alcohol intake: current Patient Tobacco Use Status: Former Tobacco user Cigarette Packs Per Day: 1 Years Smoked: 13 yrs ago e-Cigarette/Vaping Use: Never Used service: No Current occupational status: retired Cognitive needs: No Hearing needs: No Vision needs: Yes Questionnaire PHQ-9 Over the last 2 weeks, how often have you been bothered by any of the following problems? Depression Screening Interpretation: Negative Depression Screening Done: Yes 75497 - PHQ-9 Billing: Patient declined-do not bill Source: Developed by Drs. Erick Rodriguez, Violetta Boateng, Chapo Samaniego and colleagues, with an educational syed from [employer]. Thrive Questionnaire Date Thrive assessed: 01/17/25 I am a: Patient What is your living situation today?: I have a steady place to live Within the past 12 months, did the food you bought not last and you didn't have the money to get more?: Never true Within the past 12 months, did you worry whether your food would run out before you got money to buy more?: Never true Do you have trouble paying for medicines?: No Do you have trouble getting transportation to medical appointments?: No Do you have trouble paying your heating and electricity bill?: No Do you have trouble taking care of your child, family member or friend?: No Do you have trouble with day-to-day activities such as bathing, preparing meals, shopping, managing finances, etc.?: No Are you currently unemployed and looking for a job?: No Are you interested in more education?: No THRIVE Score: 0 AUDIT C Alcohol Use Questionnaire (AUDIT-C) 1. How often do you have a drink containing alcohol?: 2-3 times a week 2. How many drinks containing alcohol do you have on a typical day when you are drinking?: 3 or 4 Total Score: 4 Score Reviewed/Action Taken: No PATRICK-7 AMB Questionnaire PATRICK-7 Date PATRICK - 7 assessed: 01/17/25 Source: Developed by Drs. Erick Rodriguez, Violetta Boateng, Chapo Samaniego and colleagues, with an educational syed from [employer]. PATRICK-7 Assessment Billing PATRICK-7 Assessment Tool: PATRICK-7 Assessment 34897 (patient declined ) Review of Systems Const Denies body aches, Denies fatigue and Denies headache(s) Eyes Details: vision works eye exam UTD Reports requires corrective lenses ENT Reports Normal hearing present, Denies dysphagia, Denies headache(s), Denies hoarseness and Denies nasal congestion Card Denies chest pain, Denies rapid heart rate, Denies irregular heart rhythm, Denies palpitations and Denies dyspnea Resp Denies cough and Denies dyspnea GI Denies change in bowel habits, Denies dysphagia, Denies heartburn and Denies lalo rrhea Reports no additional complaints Musc Details: gets chiropractic adjustments monthly for her left TMJ and left ribcage dislocation Reports no additional complaints Skin/Breast Denies breast pain, Denies breast mass, Denies dry skin and Denies rash Neuro Reports Normal hearing present, Denies headache(s), Denies Sensory deficit (Neuro) and Denies tremor(s) Psych Reports no additional complaints Endo Denies cold intolerance, Denies fatigue and Denies palpitations Moe/Lymph Reports no additional complaints Aller/Immun Reports no additional complaints Physical exam (Primary Care) Vital Signs: Last Vital Signs Temp 98.7 F 01/17/25 11:45 Pulse 71 01/17/25 11:45 Resp 16 01/17/25 11:45 BP 120/70 01/17/25 11:45 Pulse Ox 97 01/17/25 11:45 Oxygen Delivery Method Room Air 01/17/25 11:45 BMI result Body Mass Index 23.4 Tobacco/Smoking Status: Tobacco use Status Tobacco use date assessed 01/17/25 01/17/25 11:21 Patient Tobacco Use Status Former Tobacco user 01/17/25 11:20 e-Cigarette/Vaping Use Never Used 01/17/25 11:20 Depression Screening Interpretation: Negative Thrive Assessment: Date of Thrive Assessment Date Thrive assessed 01/17/25 01/17/25 11:50 Advance Care Planning discussion: Exists, not on file Const General: no acute distress and alert Orientation/consciousness: patient oriented x3 HENMT Face and sinus: Yes face symmetric Mouth: Normal oral and palatal mucosa present, oropharynx normal and moist mucous membranes Eyes General: appearance normal, both eyes and all related structures Neck Other: Palpable thyroid gland, nontender to palpation Neck: Yes full ROM and Yes no lymphadenopathy Thyroid: nontender Chest Chest palpation & inspection: normal inspection of the chest Breast/axilla palpation: normal palpation of the breasts Resp Effort & Inspection: normal respiratory effort and able to speak in complete sentences Auscultation: clear to auscultation bilaterally Cardio Jugular venous distension: no JVD Rate: regular rate Rhythm: regular rhythm Heart sounds: S1 normal heart sound present and S2 normal heart sound present GI Inspection: Yes normal to inspection Palpation (GI): Soft to palpation, nontender, no guarding and no masses Auscultation: normal bowel sounds Back/Spine/Pelvis Back: No back tenderness Skin General skin exam: no rashes or lesions noted Neuro General: patient oriented x3, gait normal, moves all extremities, no focal motor deficits and CN's II-XI intact bilaterally Cranial nerves: Yes Normal hearing present Cognition (Neuro): normal cognition Gait exam (Neuro): Normal gait present Motor exam (neuro): 5/5 motor strength present throughout Sensory Exam: No Sensory deficit (Neuro) Extrem General: Yes normal to inspection, Yes full ROM, Yes no pedal edema and Yes normal gait Psych Appearance: grossly normal and well kempt Mental Status: mental status grossly normal Speech and movement: Normal speech and movement present Affect: normal affect Coding Level of Care Code Est Pt Prev Care >65y(56208) Diagnoses Annual visit for general adult medical examination with abnormal findings Z00. Dyslipidemia E78.5 Generalized anxiety disorder F41.1 Anxiety disorder type: generalized anxiety disorder Autoimmune thyroiditis E06.3 Additional Codes PATRICK-7 Assessment Billing - PATRICK-7 Assessment Tool: PATRICK-7 Assessment 25498 ([id number]) Vital Signs *Quality* - Advance Care Planning discussion: Exists, not on file ([id number]) Assessment & Plan Assessment & Plan (1) Annual visit for general adult medical examination with abnormal findings: Code(s): Z00.01 - Encounter for general adult medical examination with abnormal findings Plan: Fasting labs ordered. Continue with vitamin-D 3 supplements, adequate calcium from dietary sources and continue up-to-date with her screening mammogram and Pap smear, due for repeat bone density next year had a Cologuard test in 2022 which came back with negative findings. Does not want to get any vaccines (2) Dyslipidemia: Code(s): E78.5 - Hyperlipidemia, unspecified Category: Medical Plan: Fasting lipid panel ordered. LDL cholesterol has been persistently elevated Does not want to start statin, but willing to continue with [place] 3 fatty acid supplement (3) Anxiety disorder: Code(s): F41.9 - Anxiety disorder, unspecified Category: Medical Qualifiers: Anxiety disorder type: generalized anxiety disorder Qualified Code(s): F41.1 - Generalized anxiety disorder Plan: Declines referral for counseling, or starting any new medication for anxiety at present time, takes lorazepam as needed and does yoga and walks regularly for exercise which has been helping all her anxiety at (4) Autoimmune thyroiditis: Code(s): E06.3 - Autoimmune thyroiditis Category: Medical Plan: Ordered a TSH, free T4 and thyroid peroxidase antibody. Currently on levothyroxine 100 mcg daily Orders: Orders Thyroid Stimulating Hormone 01/17/25 E06.3 - Autoimmune thyroiditis, E78.5 - Hyperlipidemia, unspecified, F41.1 - Generalized anxiety disorder, Z00.01 - Encounter for general adult medical examination with abnormal findings Vitamin D 25-OH Total 01/17/25 E06.3 - Autoimmune thyroiditis, E78.5 - Hyperlipidemia, unspecified, F41.1 - Generalized anxiety disorder, Z00.01 - Encounter for general adult medical examination with abnormal findings Alanine Aminotransferase 01/17/25 E06.3 - Autoimmune thyroiditis, E78.5 - Hyperlipidemia, unspecified, F41.1 - Generalized anxiety disorder, Z00.01 - Encounter for general adult medical examination with abnormal findings Lipid Panel 01/17/25 E06.3 - Autoimmune thyroiditis, E78.5 - Hyperlipidemia, unspecified, F41.1 - Generalized anxiety disorder, Z00.01 - Encounter for general adult medical examination with abnormal findings Basic Metabolic Panel Fasting 01/17/25 E06.3 - Autoimmune thyroiditis, E78.5 - Hyperlipidemia, unspecified, F41.1 - Generalized anxiety disorder, Z00.01 - Encounter for general adult medical examination with abnormal findings Free T4 (Free Thyroxine) 01/17/25 E06.3 - Autoimmune thyroiditis, E78.5 - Hyperlipidemia, unspecified, F41.1 - Generalized anxiety disorder, Z00.01 - Encounter for general adult medical examination with abnormal findings Thyroid Peroxidase Antibodies 01/17/25 E06.3 - Autoimmune thyroiditis, E78.5 - Hyperlipidemia, unspecified, F41.1 - Generalized anxiety disorder, Z00.01 - Encounter for general adult medical examination with abnormal findings Aspartate Amino Transferase 01/17/25 E06.3 - Autoimmune thyroiditis, E78.5 - Hyperlipidemia, unspecified, F41.1 - Generalized anxiety disorder, Z00.01 - Encounter for general adult medical examination with abnormal findings
[2025-01-17 11:45] VITALS: BP 120/70; PULSE 71; RESP 16; TEMP 37.1; O2SAT 97; BMI 23.4
--- OUTSIDE RECORDS SUMMARY | 2025-01-17 13:32 | XMS_ITS | Patient Health Record ---
Author Organization [facility] Address [address] [place] [address] Care Team Providers Care English Instructor Name Role Phone Erick London Unavailable [phone] Reason For Referral No Information Problems Problem Type SNOMED Code ICD Code Onset Dates Problem Status W/U Status Risk Notes Problem Screening for malignant neoplasm of colon (381913393) Special screening for malignant neoplasms, colon (V76.51) Active confirmed Plan Of Treatment No Information Insurance Providers Payer Name Payer Address Payer Phone Subscriber Number Group Number Insured Name Patient Relationship to Insured Coverage Start Date Coverage End Date [facility] [address] [place], [place] [id number] VILLANUEVA Self - patient is the insured
== END 2025-01-17 12:18 | disposition home or self-care (01) ==
PROVIDERS: PCP Internal Medicine; Visit Provider Internal Medicine
DX: Z00.00 Encounter for general adult medical examination without abnormal findings (principal); E78.5 Hyperlipidemia, unspecified; F41.1 Generalized anxiety disorder; E06.3 Autoimmune thyroiditis

== ENCOUNTER → 2025-01-17 10:59 | Outpatient (BNVA) | payer MEDICARE, BC, SELFPAY | PROVIDERS: PCP Internal Medicine; Visit Provider Internal Medicine | DX: Z00.01 Encounter for general adult medical examination with abnormal findings (principal); E78.5 Hyperlipidemia, unspecified; F41.1 Generalized anxiety disorder; E06.3 Autoimmune thyroiditis | CPT/HCPCS: 96127; 99397 ==

== ENCOUNTER 2025-06-20 06:28 | Outpatient (REF) | payer MEDICARE, BC, SELFPAY ==
--- OUTSIDE RECORDS SUMMARY | 2025-06-20 06:31 | XMS_ITS | Patient Health Record ---
Author Organization [facility] Kevin pinedo Nelson Address [address] [place] [address] Care Team Providers Care Cable Weaver Name Role Phone Avelina CORDON, Susannah Betancourt Primary Care Provider Un available BlackGualbertoChasidy Unavailable [phone] Reason For Referral No Information Medications Medication SIG (Take, Route, Frequency, Duration) Notes Start Date End Date Status LORazepam 0.5 MG 1 tablet as needed Orally Once a day Active Lamisil 250 250 MG 1 Tab for 7 days the n stop for 3weeks then restart nikolay for 12 months Oral Daily; Duration: 84 days 03/18/2016 Not-Taking Levothyroxine Sodium 112 MCG 1 tablet Orally Once a day Active Social History Tobacco use other than smoking: Question Answer Notes Are you an other tobacco user? No Problems Problem Type SNOMED Code ICD Code Onset Dates Problem Status W/U Status Risk Notes Problem Acquired hammer toe of right foot ([id number]) Other hammer toe(s) (acquired), right foot (M20.41) Active confirmed Problem Other hammer toe(s) (acquired), left foot (M20.42) Active confirmed Plan Of Treatment Pending Test Test Name Order Date *Liver Function Test (LFT) 03/17/2016 *Liver Function Test (LFT) 07/21/2016 [id number] NAIL, 6 OR MORE 01/26/2017 [id number] NAIL, 6 OR MORE 04/13/2017 Insurance Providers Payer Name Payer Address Payer Phone Subscriber Number Group Number Insured Name Patient Relationship to Insured Coverage Start Date Coverage End Date [facility] [address] [place] [address] [id number] Dulude, Amanda Self - patient is the insured Medical (General) History Medical History History ICD Code Thyroid disorder Surgical History Surgery Date(Month/Year) lumpectomy 1979 appendectomy 1985 tubal ligation 1984
--- OUTSIDE RECORDS SUMMARY | 2025-06-20 06:31 | XMS_ITS | Patient Health Record ---
Author Organization [facility] Address [address] [place] [address] Care Team Providers Care Newsroom Intern Name Role Phone Erick London Unavailable [phone] Reason For Referral No Information Problems Problem Type SNOMED Code ICD Code Onset Dates Problem Status W/U Status Risk Notes Problem Screening for malignant neoplasm of colon ([id number]) Special screening for malignant neoplasms, colon (V76.51) Active confirmed Plan Of Treatment No Information Insurance Providers Payer Name Payer Address Payer Phone Subscriber Number Group Number Insured Name Patient Relationship to Insured Coverage Start Date Coverage End Date [facility] [address] [place], [place] [id number] VILLANUEVA Self - patient is the insured
[2025-06-20 10:49] LABS: Alanine Aminotransferase 24 U/L (0-31); Anion Gap 14 (12-20); Aspartate Amino Transferase 26 U/L (5-31); Blood Urea Nitrogen 15 mg/dL (9-16); Calcium 9.5 mg/dL (8.4-10.2); Carbon Dioxide 29 mmol/L (22-29); Chloride 103 mmol/L (96-108); Cholesterol 267 mg/dL (<200); Estimated Glomerular Filt Rate > 60; Free T4 (Free Thyroxine) 1.05 ng/dL (0.71-1.85); HDL Cholesterol 95 mg/dL (>40); Potassium 4.5 mmol/L (3.3-5.1); Sodium 141 mmol/L (135-145); Thyroid Stimulating Hormone 2.18 uIU/mL (0.32-4.0); Triglycerides 65 mg/dL (<150)
== END 2025-06-20 06:29 | disposition home or self-care (01) ==
LOC: HO.HMGCLDS 06:28
PROVIDERS: PCP Internal Medicine; Visit Provider Internal Medicine
DX: Z00.01 Encounter for general adult medical examination with abnormal findings (principal); F41.1 Generalized anxiety disorder; E06.3 Autoimmune thyroiditis; E78.5 Hyperlipidemia, unspecified
CPT/HCPCS: 36415; 80048; 80061; 82306; 84439; 84443; 84450; 84460; 86376